=== PATIENT | female | born 1930 | race Caucasian/White ===

== ENCOUNTER 2018-06-19 02:34 | Observation (INO) | payer OTHER ==
[~2018-06-19] VITALS: Ht 157.5 cm; Wt 71.0 kg
[2018-06-19 03:00] VITALS: BP 135/66; PULSE 98; RESP 16; Ht 157.5 cm; Wt 71.0 kg
[2018-06-19 03:16] VITALS: PULSE 92
[2018-06-19 03:51] VITALS: BP 135/66; PULSE 99; RESP 17
[2018-06-19] MEDS ORDERED: DOCU-159 PO (03:57)
[2018-06-19] MEDS ORDERED: DULO30CA45 PO (03:57)
[2018-06-19] MEDS ORDERED: HYDR25TA6 PO (03:57)
[2018-06-19] MEDS ORDERED: DONE5TAB53 PO (03:57)
[2018-06-19] MEDS ORDERED: ACET325T33 PO (03:57)
[2018-06-19 04:00] VITALS: PULSE 90
[2018-06-19] MEDS ORDERED: NACL 0.9% 3 ML SYG IV SCH (04:00)
[2018-06-19] MEDS ORDERED: ACETAMINOPHEN 325 MG TAB PO PRN (04:00)
[2018-06-19] MEDS ORDERED: ONDANSETRON 4 MG INJ IV PRN (04:00)
[2018-06-19] MEDS ORDERED: DOCUSATE SODIUM 100 MG CAP PO PRN (04:00)
[2018-06-19] MEDS ORDERED: SOD CHLORIDE 0.9% 1,000 ML IV SCH (04:00)
[2018-06-19 07:14] VITALS: BP 124/71; PULSE 87; RESP 20
[2018-06-19 08:00] VITALS: PULSE 86
[2018-06-19] MEDS ORDERED: POTASSIUM CHLORIDE (SR) 20 MEQ TAB PO STA (08:02)
[2018-06-19] MEDS ORDERED: LISI10TA2 PO (08:33)
--- NOTE | 2018-06-19 08:34 | PDOCDIS ---
Discharge Instructions CONDITION [id number] Patient Condition: Iuyiz0u Good HOME CARE INSTRUCTIONS: [id number] Diet Instructions: [id number] FOLLOW UP/APPOINTMENTS Follow-up Plan pcp 1 SLIME Mir MD Jun 19, 2018 08:34
[2018-06-19] MEDS ORDERED: DULOXETINE 30 MG CAP DR PO SCH (09:00)
[2018-06-19] MEDS ORDERED: POTASSIUM CHLORIDE 30 MEQ in SOD CHLORIDE 0.9% 1,000 ML IV SCH (09:00)
--- NOTE | 2018-06-19 10:15 | HP ---
DATE OF ADMISSION: 06/19/2018 CHIEF COMPLAINT: Vomiting and diarrhea. HISTORY OF PRESENT ILLNESS: This is an 88-year-old female who was transferred from [facility] after she presented with nausea, vomiting and diarrhea in the [facility] and [facility]. The patient denies a ny further symptoms. No abdominal pain. No chest pain or shortness of breath. Initial evaluation revealed hypokalemia. Repeat serum potassium in our facility was 2.9. The patien t has underlying dementia and resides in a [facility]. PAST MEDICAL HISTORY: 1. Hypertension. 2. Alzheimer dementia. 3. Chronic depression. MEDICATIONS PRIOR TO ADMISSION: Aricept, Cymbalta and hydrochlorothiazide. SOCIAL HISTORY: The patient denies tobacco or alcohol use. PHYSICAL EXAMINATION: GENERAL: Well-developed, well-nourished elderly female who is alert and oriented to place and person . VITAL SIGNS: Stable. She is afebrile. HEENT: Extraocular muscles intact. Pupils are equal and reactive to light bilaterally. Sclerae are anicteric. Oropharynx is clear and moist. NECK: Supple, no JVD, no carotid bruits. LUNGS: Clear to auscultation bilaterally. CARDIAC: Regular rate and rhythm. No murmurs, rubs or gallops. ABDOMEN: Soft, nontender, nondistended, normoactive bowel sounds. EXTREMITIES: No clubbing, cyanosis, or edema. NEUROLOGICAL: Grossly nonfocal. LABORATORY DATA: White blood cell count 6.1, hemoglobin 15.1, platelet count is 191,000. Basic meta bolic panel is normal except for potassium of 2.9. ASSESSMENT: 1. An 88-year-old female with vomiting and diarrhea, resolved. 2. Dehydration, resolved. 3. Hypokalemia. 4. Hypertension. 5. Alzheimer dementia. 6. Chronic depression. PLAN: 1. Place in Med/Surg observation. Continue IV fluid hydration. 2. Potassium supplementation. 3. Resume home medications. 4. Discharge planning. Dictated By: SLIME MONROE/YAZ Conf#: [id number] DID#: [id number]
--- NOTE | 2018-06-19 10:30 | DS ---
DATE OF ADMISSION: 06/19/2018 DATE OF DISCHARGE: 06/19/2018 DISCHARGE DIAGNOSES: 1. An 88-year-old female with vomiting and diarrhea, resolved. 2. Dehydration, resolved. 3. Hyperkalemia. 4. Alzheimer's dementia. 5. Hypertension. 6. Chronic depression. HOSPITAL COURSE: An 88-year-old female with Alzheimer's dementia, residing in a [facility] and care was t ransferred from [facility] emergency room after she presented with vomiting and diarrhea. The patien t was found to have hypokalemia. Her symptoms resolved. I had a long discussion with her daughter. She refuses prison facility placement and wanted her mother to [facility] back [facility]. I discontinued the hydrochlorothiazide and started her on lisinopril. The patient received potas sium supplementation for a serum potassium of 2.9. She is in stable condition for discharge back to [facility]. I have requested home health physical therapy. MEDICATIONS ON DISCHARGE: 1. Lisinopril 10 mg p.o. daily. 2. Aricept 5 mg p.o. daily. 3. Cymbalta 30 mg p.o. daily. DISCHARGE FOLLOWUP: Follow up with PCP in 1 week. Dictated By: SLIME MONROE/YAZ Conf#: [id number] DID#: [id number]
[2018-06-19] MEDS ORDERED: DONEPEZIL 5 MG TAB PO SCH (21:00)
== END 2018-06-19 11:15 | disposition home or self-care (01) ==
LOC: INTOOBSV 02:35 → TEL 02:35
PROVIDERS: ADMIT Internal Medicine; ATTEND Internal Medicine
DX: R11.2 Nausea with vomiting, unspecified (principal); R19.7 Diarrhea, unspecified; E86.0 Dehydration; E87.5 Hyperkalemia; G30.9 Alzheimer's disease, unspecified; F02.80 Dementia in other diseases classified elsewhere, unspecified severity, without behavioral disturbance, psychotic disturbance, mood disturbance, and anxiety; F32.9 Major depressive disorder, single episode, unspecified; I10 Essential (primary) hypertension
CPT/HCPCS: 80048; 85025; G0378; J3480; J7030; 99217